=== PATIENT | male | born 1965 | race Caucasian/White ===

== ENCOUNTER 2020-10-12 14:27 | Emergency (ER) | payer OTHER ==
--- NOTE | 2020-10-12 14:59 | ED General ---
General Chief Complaint: General Problems/Pain Stated Complaint: FOOD/WATER ABSTINENCE Nursing Triage Note: Patient states he has not eaten in 4 days because he doesn't like the food at the nursing home. He also states he has had nothing to drink for 2 days because the water faucet in his cell doesn't work. Patient states he will agree to a blood draw, but refuses an IV/IV fluids. Source of Information: Patient Exam Limitations: No Limitations History of Present Illness Date Seen by Provider: Oct 12, 2020 Time Seen by Provider: 14:40 Initial Comments Here from nursing home with report of not eating in 4 days and not drinking in 2 days. Patient responds that he does not like the food there and they are not fixing that. With regard to the drinking he states that his [place] is not working and he is not able to get water or anything because they are not bringing him anything. When asked if he could drink he states yes and was able to take a few sips of water. He states he has not been eating well for some time. He is irritable but answering questions. Law enforcement at bedside. Here for medical evaluation and medical clearance. Timing/Duration: 3-4 Days Associated Systoms: No Fever/Chills; Loss of Appetite; No Nausea/Vomiting, No Shortness of Air, No Weakness Allergies and Home Medications Allergies Coded Allergies: codeine (Verified Allergy, Unknown, 10/12/20) tomato (Verified Allergy, Unknown, 10/12/20) Patient Home Medication List Home Medication List Reviewed: Yes Review of Systems Review of Systems Constitutional: No chills, No fever, No weakness EENTM: no symptoms reported Respiratory: no symptoms reported Cardiovascular: no symptoms reported Gastrointestinal: no symptoms reported Skin: no symptoms reported Psychiatric/Neurological: See HPI All Other Systems Reviewed Negative Unless Noted: Yes Past Mmujwvp-Mownyu-Guydxq Hx Patient Social History Tobacco Use?: Yes Tobacco type used: Cigarettes Substance use?: No Alcohol Use?: Yes Pt feels they are or have been: No Seasonal Allergies Seasonal Allergies: Yes Past Medical History Surgeries: No Respiratory: No Cardiac: No Family Medical History No Pertinent Family Hx Patient states that he does not go to the doctor so does not have any medical problems. Physical Exam Vital Signs Vital Signs - First Documented 10/12/20 14:30 Temp 36.4 Pulse 71 Resp 18 B/P (MAP) 151/95 (113) Pulse Ox 100 O2 Delivery Room Air Capillary Refill : Less Than 3 Seconds Height, Weight, BMI Height: '" Weight: lbs. oz. kg; BMI Method: General Appearance: No Apparent Distress, Thin HEENT: PERRL/EOMI, Pharynx Normal Neck: Full Range of Motion, Normal Inspection, Non Tender, Supple Respiratory: Lungs Clear, Normal Breath Sounds Cardiovascular: Regular Rate, Rhythm, No Murmur Gastrointestinal: Non Tender, Soft Back: Normal Inspection, No CVA Tenderness, No Vertebral Tenderness Extremity: Normal Range of Motion, Non Tender Neurologic/Psychiatric: Alert, Oriented x3 Skin: Normal Color, Warm/Dry Progress/Results/Core Measures Suspected Sepsis SIRS Temperature: Pulse: 71 Respiratory Rate: 18 Laboratory Tests 10/12/20 14:51: White Blood Count 6.7 Blood Pressure 151 /95 Mean: 113 Laboratory Tests 10/12/20 14:47: Creatinine 1.19, Total Bilirubin 0.9 10/12/20 14:51: Platelet Count 329 Results/Orders Lab Results Laboratory Tests Test 10/12/20 14:47 10/12/20 14:51 Range/Units Sodium Level 139 135-145 MMOL/L Potassium Level 4.7 3.6-5.0 MMOL/L Chloride Level 98 98-107 MMOL/L Carbon Dioxide Level 21 21-32 MMOL/L Anion Gap 20 H 5-14 MMOL/L Blood Urea Nitrogen 24 H 7-18 MG/DL Creatinine 1.19 0.60-1.30 MG/DL Estimat Glomerular Filtration Rate 63 BUN/Creatinine Ratio 20 Glucose Level 74 70-105 MG/DL Calcium Level 10.1 8.5-10.1 MG/DL Corrected Calcium 8.5-10.1 MG/DL Total Bilirubin 0.9 0.1-1.0 MG/DL Aspartate Amino Transf (AST/SGOT) 17 5-34 U/L Alanine Aminotransferase (ALT/SGPT) 6 0-55 U/L Alkaline Phosphatase 86 40-136 U/L Total Protein 8.0 6.4-8.2 GM/DL Albumin 4.6 H 3.2-4.5 GM/DL White Blood Count 6.7 4.3-11.0 10^3/uL Red Blood Count 5.21 4.35-5.85 10^6/uL Hemoglobin 16.4 13.3-17.7 G/DL Hematocrit 47 40-54 % Mean Corpuscular Volume 90 80-99 FL Mean Corpuscular Hemoglobin 31 25-34 PG Mean Corpuscular Hemoglobin Concent 35 32-36 G/DL Red Cell Distribution Width 12.2 10.0-14.5 % Platelet Count 329 130-400 10^3/uL Mean Platelet Volume 8.5 7.4-10.4 FL Immature Granulocyte % (Auto) 0 % Neutrophils (%) (Auto) 61 42-75 % Lymphocytes (%) (Auto) 30 12-44 % Monocytes (%) (Auto) 7 0-12 % Eosinophils (%) (Auto) 1 0-10 % Basophils (%) (Auto) 1 0-10 % Neutrophils # (Auto) 4.1 1.8-7.8 X 10^3 Lymphocytes # (Auto) 2.0 1.0-4.0 X 10^3 Monocytes # (Auto) 0.5 0.0-1.0 X 10^3 Eosinophils # (Auto) 0.1 0.0-0.3 10^3/uL Basophils # (Auto) 0.1 0.0-0.1 10^3/uL Immature Granulocyte # (Auto) 0.0 0.0-0.1 10^3/uL My Orders Orders - DUYEN SIU MD Cbc With Automated Diff (10/12/20 14:51) Comprehensive Metabolic Panel (10/12/20 14:51) Vital Signs/I&O 10/12/20 14:30 Temp 36.4 Pulse 71 Resp 18 B/P (MAP) 151/95 (113) Pulse Ox 100 O2 Delivery Room Air Capillary Refill : Less Than 3 Seconds Blood Pressure Mean: 113 Progress Note : Progress Note Seen and evaluated. Offered IV fluids and labs. Patient declined IV fluids. He is drinking water. Excepted laboratory evaluation. Monitor patient. 1552: Laboratory data reviewed. No significant acute findings. Discharged back to nursing home with return precautions. Officer verbalized understanding instructions and agreement with plan. Departure Impression Primary Impression: Medical clearance for incarceration Disposition: 01 HOME, SELF-CARE Condition: Stable Departure-Patient Inst. Decision time for Depature: 15:53 Patient Instructions: Diet and Health Add. Discharge Instructions: All discharge instructions reviewed with patient and/or family. Voiced understanding. You should eat a normal diet. Drink an appropriate amount of fluids daily. Follow-up with nursing home medical facility. Return for other concerns as needed. No significant findings on medical screening at this point. Return for other concerns as needed. DUYEN SIU MD Oct 12, 2020 14:59
[2020-10-12 15:09] LABS: HEMATOCRIT 47 % (40-54); HEMOGLOBIN 16.4 G/DL (13.3-17.7); MEAN CORPUSCULAR HEMOGLOBIN 31 PG (25-34); MEAN CORPUSCULAR HGB CONC 35 G/DL (32-36); MEAN CORPUSCULAR VOLUME 90 FL (80-99); WHITE BLOOD COUNT 6.7 10^3/uL (4.3-11.0)
[2020-10-12 15:10] LABS: LYMPHOCYTES % (AUTO) 30 % (12-44); MEAN PLATELET VOLUME 8.5 FL (7.4-10.4); NEUTROPHILS % (AUTO) 61 % (42-75); PLATELET COUNT 329 10^3/uL (130-400)
[2020-10-12 15:11] LABS: BASOPHILS % (AUTO) 1 % (0-10); EOSINOPHILS % (AUTO) 1 % (0-10); MONOCYTES % (AUTO) 7 % (0-12)
[2020-10-12 15:12] LABS: BASOPHILS # (AUTO) 0.1 10^3/uL (0.0-0.1); EOSINOPHILS # (AUTO) 0.1 10^3/uL (0.0-0.3); MONOCYTES # (AUTO) 0.5 X 10^3 (0.0-1.0); NEUTROPHILS # (AUTO) 4.1 X 10^3 (1.8-7.8)
[2020-10-12 15:24] LABS: BILIRUBIN,TOTAL 0.9 MG/DL (0.1-1.0); BUN/CREATININE RATIO 20; CALCIUM 10.1 MG/DL (8.5-10.1); CARBON DIOXIDE 21 MMOL/L (21-32); CHLORIDE 98 MMOL/L (98-107); CREATININE SERUM 1.19 MG/DL (0.60-1.30); GFR ESTIMATED 63; GLUCOSE 74 MG/DL (70-105); POTASSIUM 4.7 MMOL/L (3.6-5.0); SODIUM 139 MMOL/L (135-145)
[2020-10-12 15:25] LABS: ALANINE AMINOTRANSFERASE 6 U/L (0-55); ALBUMIN 4.6 GM/DL (3.2-4.5); ALKALINE PHOSPHATASE 86 U/L (40-136)
[2020-10-12 15:59] VITALS: BP 135/81
== END 2020-10-12 16:00 | disposition home or self-care (01) ==
LOC: ER FS 14:35
CPT/HCPCS: 36415; 80053; 85025; 99281